=== PATIENT | male | born 1990 | race African-American/Black ===

== ENCOUNTER 2016-07-17 00:27 | Emergency (ER) | payer BC, SELFPAY ==
[2016-07-17] MEDS ORDERED: Adacel (T-DAP) 0.5 ML VIAL ONE (00:46)
[2016-07-17 00:57] LABS: Hemoglobin 14.7 g/dL (14.0-18.0); Mean Corpuscular HGB CONC 33.7 g/dL (32.0-36.0); Mean Corpuscular Volume 88.9 fl (80.0-94.0); Mean Platelet Volume 8.7 fL (7.4-10.4); Platelet Count 263 thou/uL (130-400); RBC Distribution Width 11.6 % (11.5-14.5); White Blood Cell (WBC) Count 7.5 thou/uL (4.8-10.8)
[2016-07-17 01:03] LABS: ALT (SGPT) 36 U/L (8-55); AST (SGOT) 30 U/L (5-34); Albumin 4.7 g/dL (3.5-5.0); Alkaline Phosphatase 62 U/L (40-150); Anion Gap 19 mmol/L (10-20); BUN (Urea Nitrogen) 12 mg/dL (8.9-20.6); Bilirubin, Total 0.8 mg/dL (0.2-1.2); Calc. Creatinine Clearance 0 mL/min (70-130); Calcium 9.3 mg/dL (7.8-10.44); Carbon Dioxide 21 mmol/L (22-29); Chloride 104 mmol/L (98-107); Estimated GFR-MDRD 87; Globulin 3.2 g/dL (2.4-3.5); Glucose 109 mg/dL (70-105); Lipase 36 U/L (8-78); Potassium 3.3 mmol/L (3.5-5.1); Protein, Total 7.9 g/dL (6.0-8.3); Sodium 141 mmol/L (136-145)
[2016-07-17] MEDS ORDERED: cefTRIAXone\\ROCEPHIN 1 GM VIAL ONE (01:09)
[2016-07-17 01:15] LABS: Lymphocytes 61 % (21-51); MDiff Complete? YES; Monocytes 11 % (0-10); Neutrophil 26 % (42-75); PLT Morphology Comment Appears Adequate; RBC Morphology Normal
[2016-07-17] MEDS ORDERED: Bacitracin Zinc 1 Packet ONE ×2 (02:05→02:42)
--- NOTE | 2016-07-17 10:24 | RAD ---
LEFT FOREARM TWO VIEWS: Indication: Injury, pain. FINDINGS: There is no evidence of fracture or dislocation of the left forearm osseous structures. IMPRESSION: No acute osseous abnormality. POS: [facility]
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
== END 2016-07-17 02:52 | disposition home or self-care (01) ==
LOC: BURERS 00:27
DX: S71.012A Laceration without foreign body, left hip, initial encounter (principal); S51.812A Laceration without foreign body of left forearm, initial encounter; S51.811A Laceration without foreign body of right forearm, initial encounter; S31.112A Laceration without foreign body of abdominal wall, epigastric region without penetration into peritoneal cavity, initial encounter; S61.212A Laceration without foreign body of right middle finger without damage to nail, initial encounter; X99.1XXA Assault by knife, initial encounter
CPT/HCPCS: 12005; 71260; 74177; 80053; 83690; 85025; 90471; 90715; 94760; 96360; J0696

== ENCOUNTER 2016-10-02 12:20 | Emergency (ER) | payer SELFPAY | END 2016-10-02 12:33 | disposition home or self-care (01) | LOC: BURERS 12:20 | DX: S16.1XXA Strain of muscle, fascia and tendon at neck level, initial encounter (principal); V49.9XXA Car occupant (driver) (passenger) injured in unspecified traffic accident, initial encounter | CPT/HCPCS: 99283 ==

== ENCOUNTER 2016-11-06 17:12 | Emergency (ER) | payer SELFPAY ==
[2016-11-06] MEDS ORDERED: Sulfameth/Trimethoprim DS 800-160mg TAB ONE ×2 (17:25)
== END 2016-11-06 17:49 | disposition home or self-care (01) ==
LOC: BURERS 17:12
DX: L02.01 Cutaneous abscess of face (principal)
CPT/HCPCS: 10060

== ENCOUNTER 2016-11-30 18:00 | Emergency (ER) | payer SELFPAY | END 2016-11-30 18:20 | disposition home or self-care (01) | LOC: BURERS 18:00 | DX: M77.9 Enthesopathy, unspecified (principal); M79.89 Other specified soft tissue disorders | CPT/HCPCS: 99283 ==

== ENCOUNTER 2019-06-06 20:21 | Emergency (ER) | payer SELFPAY | END 2019-06-06 20:47 | disposition home or self-care (01) | LOC: BURERS 20:21 | DX: R51 Headache (principal) | CPT/HCPCS: 99283 ==

== ENCOUNTER 2021-08-26 08:12 | Emergency (ER) | payer SELFPAY | END 2021-08-26 09:05 | disposition home or self-care (01) | LOC: BURERS 08:12 | DX: U07.1 COVID-19 (principal) | CPT/HCPCS: 99283; U0003; U0005 ==

== ENCOUNTER 2021-08-29 18:20 | Emergency (ER) | payer SELFPAY ==
[2021-08-29 20:10] LABS: #Eosinphils 0.1 thou/uL (0.0-0.7); #Lymphocytes 2.1 thou/uL (1.20-3.40); #Monocytes 0.5 thou/uL (0.11-0.59); #Neutrophils 1.4 thou/uL (1.40-6.50); %Basophils 0.6 % (0.0-1.0); %Eosinophils 2.6 % (0.0-10.0); %Lymphocytes 49.6 % (21.0-51.0); %Neutrophils 34.3 % (42.0-75.0); Hemoglobin 15.9 g/dL (14.0-18.0); Mean Corpuscular HGB CONC 33.5 g/dL (32.0-36.0); Mean Corpuscular Hemoglobin 30.6 pg (27.0-31.0); Mean Corpuscular Volume 91.4 fL (78.0-98.0); Mean Platelet Volume 9.7 fL (7.4-10.4); Platelet Count 200 thou/uL (130-400); RBC Distribution Width 11.6 % (11.5-14.5); White Blood Cell (WBC) Count 4.1 thou/uL (4.8-10.8)
[2021-08-29 20:39] LABS: Bilirubin Negative (Negative); Blood, Urine Negative (Negative); Clarity Clear (Clear); Glucose, Urine (Dipstick) Negative (Negative); Ketone, Urine Negative (Negative); Leukocyte Negative (Negative); Nitrite Negative (Negative); Protein, Urine (Dipstick) Negative (Neg-Trace); Urobilinogen 0.2 mg/dL (Less than 2)
[2021-08-29 20:43] LABS: ALT (SGPT) 25 U/L (8-55); AST (SGOT) 21 U/L (5-34); Albumin 4.5 g/dL (3.5-5.0); Alkaline Phosphatase 43 U/L (40-110); Anion Gap 15 mmol/L (10-20); BUN (Urea Nitrogen) 8 mg/dL (8.9-20.6); Bilirubin, Total 1.1 mg/dL (0.2-1.2); Calc. Creatinine Clearance 0 mL/min (70-130); Calcium 9.3 mg/dL (7.8-10.44); Carbon Dioxide 26 mmol/L (22-29); Chloride 101 mmol/L (98-107); Estimated GFR 110; Globulin 3.3 g/dL (2.4-3.5); Glucose 83 mg/dL (70-105); Lipase 15 U/L (8-78); Potassium 4.1 mmol/L (3.5-5.1); Protein, Total 7.8 g/dL (6.0-8.3); Sodium 138 mmol/L (136-145)
== END 2021-08-29 20:22 | disposition short-term general hospital (02) ==
LOC: BURERS 18:20
DX: U07.1 COVID-19 (principal); R10.11 Right upper quadrant pain
CPT/HCPCS: 36415; 80053; 81003; 83690; 83880; 84484; 85025

== ENCOUNTER 2022-01-07 11:08 | Emergency (ER) | payer SELFPAY ==
[2022-01-07 11:44] LABS: Bilirubin Negative (Negative); Blood, Urine Negative (Negative); Clarity Clear (Clear); Glucose, Urine (Dipstick) Negative (Negative); Ketone, Urine Negative (Negative); Leukocyte Negative (Negative); Nitrite Negative (Negative); Protein, Urine (Dipstick) Negative (Neg-Trace); Urobilinogen 0.2 mg/dL (Less than 2); pH, Urine 8.5 (5.0-9.0)
[2022-01-07 11:52] LABS: ALT (SGPT) 30 U/L (8-55); AST (SGOT) 24 U/L (5-34); Albumin 4.3 g/dL (3.5-5.0); Alkaline Phosphatase 47 U/L (40-110); Anion Gap 14 mmol/L (10-20); BUN (Urea Nitrogen) 7 mg/dL (8.9-20.6); Bilirubin, Total 1.4 mg/dL (0.2-1.2); Calc. Creatinine Clearance 0 mL/min (70-130); Calcium 9.3 mg/dL (7.8-10.44); Carbon Dioxide 23 mmol/L (22-29); Chloride 106 mmol/L (98-107); Estimated GFR 120; Globulin 2.8 g/dL (2.4-3.5); Glucose 87 mg/dL (70-105); Lipase 17 U/L (8-78); Potassium 3.9 mmol/L (3.5-5.1); Protein, Total 7.1 g/dL (6.0-8.3); Sodium 139 mmol/L (136-145)
[2022-01-07 12:00] LABS: Hemoglobin 15.3 g/dL (14.0-18.0); Mean Corpuscular HGB CONC 33.4 g/dL (32.0-36.0); Mean Corpuscular Hemoglobin 30.4 pg (27.0-31.0); Mean Corpuscular Volume 90.8 fl (78.0-98.0); Mean Platelet Volume 10.4 fL (7.4-10.4); Platelet Count 223 10x3/uL (130-400); RBC Distribution Width 11.5 % (11.5-14.5); Red Blood Cell (RBC) Count 5.03 mill/uL (4.70-6.10); White Blood Cell (WBC) Count 5.4 10x3/uL (4.8-10.8)
[2022-01-07 12:06] LABS: Band 2 % (5-11); Eosinophils 3 % (0-10); Lymphocytes 22 % (21-51); MDiff Complete? YES; Monocytes 8 % (0-10); Neutrophil 57 % (42-75); Reactive Lymphocytes 8 % (0-10)
== END 2022-01-07 12:16 | disposition home or self-care (01) ==
LOC: BURERS 11:08
DX: K59.00 Constipation, unspecified (principal); F17.210 Nicotine dependence, cigarettes, uncomplicated
CPT/HCPCS: 36415; 80053; 81003; 83690; 85025; 99284